=== PATIENT | male | born 2000 | race Two or more races ===

== ENCOUNTER 2022-03-07 00:14 | Emergency (ER) | payer SELFPAY ==
[~2022-03-07] VITALS: Ht 167.6 cm; Wt 68.0 kg
[2022-03-07 00:22] VITALS: BP 106/56
== END 2022-03-07 01:12 | disposition left against medical advice (07) ==
LOC: EMS 00:15
DX: R42 Dizziness and giddiness (principal); Z53.21 Procedure and treatment not carried out due to patient leaving prior to being seen by health care provider